=== PATIENT | female | born 1980 | race Caucasian/White ===

== ENCOUNTER → 2021-09-25 | Outpatient (CLI) | payer BC | LOC: ULTRA 13:27 → RAD 13:27 | PROVIDERS: ATTEND Emergency Medicine | DX: N63.10 Unspecified lump in the right breast, unspecified quadrant (principal); N64.4 Mastodynia ==

== ENCOUNTER → 2021-09-25 | Outpatient (CLI) | payer OTHER | LOC: CAT 14:35 | PROVIDERS: ATTEND Emergency Medicine | DX: J32.2 Chronic ethmoidal sinusitis (principal); R42 Dizziness and giddiness ==